=== PATIENT | female | born 1935 | race Two or more races ===

== ENCOUNTER 2020-09-18 15:14 | Outpatient (CLI) | payer OTHER | END 2020-09-18 15:23 | disposition home or self-care (01) | LOC: TOM 15:14 | PROVIDERS: ATTEND Internal Medicine Pulmonary Disease | DX: J43.2 Centrilobular emphysema (principal); J84.112 Idiopathic pulmonary fibrosis; R06.02 Shortness of breath ==

== ENCOUNTER 2020-10-03 08:49 | Outpatient (CLI) | payer OTHER | END 2020-10-03 09:02 | disposition home or self-care (01) | LOC: MAMO-SONO 08:49 | PROVIDERS: ATTEND Obstetrics & Gynecology | DX: Z12.31 Encounter for screening mammogram for malignant neoplasm of breast (principal); Z87.898 Personal history of other specified conditions; N60.11 Diffuse cystic mastopathy of right breast; N60.12 Diffuse cystic mastopathy of left breast ==

== ENCOUNTER 2023-07-14 22:09 | Emergency (ER) | payer OTHER ==
[~2023-07-14] VITALS: Ht 152.4 cm; Wt 62.6 kg
[2023-07-14] MEDS ORDERED: VALSARTAN-HCTZ1 EAC4 PO (22:30)
[2023-07-14] MEDS ORDERED: LEVOTHYROXINE50 MCG PO (22:30)
[2023-07-14] MEDS ORDERED: CEFTRIAXONE SODIUM 1,000 MG VIAL IM ONE (23:15)
== END 2023-07-15 00:05 | disposition home or self-care (01) ==
LOC: ER 22:09
DX: S00.81XA Abrasion of other part of head, initial encounter (principal); S09.90XA Unspecified injury of head, initial encounter; W19.XXXA Unspecified fall, initial encounter; Y93.89 Activity, other specified; Y92.89 Other specified places as the place of occurrence of the external cause; Y99.8 Other external cause status; I10 Essential (primary) hypertension; E03.8 Other specified hypothyroidism
CPT/HCPCS: 96372; 99282; J0696

== ENCOUNTER 2023-09-04 08:50 | Outpatient (CLI) | payer OTHER ==
[~2023-09-04 08:50] MED LIST: LEVOTHYROXINE50 MCG PO; VALSARTAN-HCTZ1 EAC4 PO
== END 2023-09-04 08:56 | disposition home or self-care (01) ==
LOC: SONOGRAMA 08:50
DX: M25.511 Pain in right shoulder (principal)

== ENCOUNTER 2025-04-08 10:02 | Outpatient (CLI) | payer OTHER | END 2025-04-08 10:12 | disposition home or self-care (01) | LOC: TOM 10:02 | PROVIDERS: ATTEND Internal Medicine Pulmonary Disease | DX: J84.112 Idiopathic pulmonary fibrosis (principal) ==